=== PATIENT | female | born 1950 | race Two or more races ===

== ENCOUNTER 2017-06-30 13:41 | Outpatient (CLI) | payer OTHER | END 2017-06-30 13:57 | disposition home or self-care (01) | LOC: EDBD 13:41 → LAB 13:41 | DX: I10 Essential (primary) hypertension (principal) ==

== ENCOUNTER 2017-06-30 13:59 | Outpatient (CLI) | payer OTHER | END 2017-06-30 14:16 | disposition home or self-care (01) | LOC: EKG 13:59 | DX: I10 Essential (primary) hypertension (principal) ==

== ENCOUNTER 2017-06-30 14:07 | Outpatient (CLI) | payer OTHER | END 2017-06-30 14:19 | disposition home or self-care (01) | LOC: RAD 14:07 | DX: I10 Essential (primary) hypertension (principal) ==